=== PATIENT | female | born 1980 | race American Indian/Alaskan Native ===

== ENCOUNTER 2019-06-05 19:42 | Emergency (ER) | payer SELFPAY ==
--- NOTE | 2019-06-05 20:33 | Emergency Department Report ---
Blank Doc - Documentation Documentation: 39-year-old female that presents with rectal pain and constipation. This initial assessment/diagnostic orders/clinical plan/treatment(s) is/are subject to change based on patient's health status, clinical progression and re- assessment by fellow clinical providers in the ED. Further treatment and workup at subsequent clinical providers discretion. Patient/guardians urged not to elope from the ED as their condition may be serious if not clinically assessed and managed. Initial orders include: 1- Patient sent to [facility] for further evaluation and treatment 2- XR abd
--- NOTE | 2019-06-05 22:25 | XRay Report ---
ABDOMEN 1 VIEW(S) INDICATION / CLINICAL INFORMATION: MAIN: abd pain...constipation.... COMPARISON: None available. FINDINGS: TUBES / LINES: None. BOWEL GAS PATTERN: No significant abnormality. FREE AIR / EXTRALUMINAL GAS: None seen. ADDITIONAL FINDINGS: There is a very large amount of stool in colon with a distended rectum likely du e to fecal impaction. IMPRESSION: 1. Probable fecal impaction. Signer Name: Von Sheehan MD Signed: 06/05/2019 10:21 PM Workstation Name: [id number]
[2019-06-05] MEDS ORDERED: KETOROLAC 30 MG/1 ML INJ IV ONE (22:49)
--- NOTE | 2019-06-05 22:50 | Emergency Department Report ---
ED Abdominal Pain HPI - General Chief Complaint: Abdominal Pain Stated Complaint: CONSTIPATION X 3 DAYS Time Seen by Provider: 06/05/19 20:32 Source: patient Mode of arrival: Ambulatory Limitations: No Limitations - History of Present Illness Initial Comments: This is a 39-year-old -[place] female who presents to the emergency room with diffuse abdominal pain and rectal pain for 3 days. No significant past medical history. Patient states she feels constipated. States it feels as if bowel is stuck in her rectal region which is causing severe pain. Patient states she is currently using stool softeners and enema with no improvement in symptoms. She denies fever, chills, nausea, or vomiting. MD Complaint: abdominal pain Onset/Timin -: days(s) Location: diffuse Radiation: none Migration to: no migration Severity: severe Severity scale (0 -10): 10 Quality: cramping, stabbing Consistency: constant Improves With: nothing Worsens With: eating Associated Symptoms: denies other symptoms Treatments Prior to Arrival: other (Enema and stool softeners) - Related Data Previous Rx's Medication Instructions Recorded Last Taken Type Lactulose [Cephulac] 45 gm PO Q6HR #340 ml 06/06/19 Unknown Rx Polyethylene Glycol/Elect 4,000 ml PO ONCE #1 bottle 06/06/19 Unknown Rx [Golytely] Allergies Allergy/AdvReac Type Severity Reaction Status Date / Time No Known Allergies Allergy Unverified 06/05/19 23:25 ED Review of Systems ROS: Stated complaint: CONSTIPATION X 3 DAYS Other details as noted in HPI Constitutional: denies: chills, fever Respiratory: denies: cough, shortness of breath, wheezing Cardiovascular: denies: chest pain, palpitations Gastrointestinal: abdominal pain, constipation. denies: nausea, diarrhea Genitourinary: denies: urgency, dysuria, discharge Musculoskeletal: denies: back pain, joint swelling, arthralgia Skin: denies: rash, lesions Neurological: denies: headache, weakness, paresthesias Psychiatric: denies: anxiety, depression ED Past Medical Hx - Social History Smoking Status: Never Smoker Substance Use Type: Alcohol - Medications Home Medications: Home Medications Medication Instructions Recorded Confirmed Last Taken Type Lactulose [Cephulac] 45 gm PO Q6HR #340 ml 06/06/19 Unknown Rx Polyethylene Glycol/Elect 4,000 ml PO ONCE #1 bottle 06/06/19 Unknown Rx [Golytely] ED Physical Exam - General Limitations: No Limitations General appearance: alert, in no apparent distress, obese (Morbidly obese) - Respiratory Respiratory exam: Present: normal lung sounds bilaterally. Absent: respiratory distress - Cardiovascular Cardiovascular Exam: Present: regular rate, normal rhythm. Absent: systolic murmur, diastolic murmur, rubs, gallop - GI/Abdominal GI/Abdominal exam: Present: soft, tenderness (Left lower quadrant), normal bowel sounds, other (Obese abdomen). Absent: distended, guarding, rebound, rigid - Rectal Rectal exam: Present: fecal impaction - Extremities Exam Extremities exam: Present: normal inspection - Back Exam Back exam: Absent: CVA tenderness (R), CVA tenderness (L) - Neurological Exam Neurological exam: Present: alert, oriented X3 - Psychiatric Psychiatric exam: Present: normal affect, normal mood - Skin Skin exam: Present: warm, dry, intact, normal color. Absent: rash ED Course Vital Signs 06/05/19 06/06/19 06/06/19 19:45 00:24 02:19 Temperature 98.7 F 98.3 F Pulse Rate 101 H 69 Respiratory 22 18 15 Rate Blood Pressure 156/106 Blood Pressure 112/61 [Right] O2 Sat by Pulse 93 98 Oximetry ED Medical Decision Making - Radiology Data Radiology results: report reviewed ABDOMEN 1 VIEW(S) INDICATION / CLINICAL INFORMATION: MAIN: abd pain...constipation.... COMPARISON: None available. FINDINGS: TUBES / LINES: None. BOWEL GAS PATTERN: No significant abnormality. FREE AIR / EXTRALUMINAL GAS: None seen. ADDITIONAL FINDINGS: There is a very large amount of stool in colon with a distended rectum likely due to fecal impaction. IMPRESSION: 1. Probable fecal impaction. - Medical Decision Making This is a 39-year-old female who presents to the emergency room with abdominal pain and constipation for 3 days. No distress noted. Vitals stable. Work-up: X-ray of the chest and abdomen. Findings of probable fecal impaction. Patient was digitally stimulated, given soapsuds enema, and lactulose. Instructed to increase fiber, continue stool softener, and increase water intake for constipation. Start GoLYTELY and lactulose. Follow up with primary care doctor in 24 hours. Patient discharged home with strict return instructions. Critical care attestation.: If time is entered above; I have spent that time in minutes in the direct care of this critically ill patient, excluding procedure time. ED Disposition Clinical Impression: Fecal impaction in rectum, Constipation by outlet obstruction Abdominal pain Qualifiers: Abdominal location: lower abdomen, unspecified Qualified Code(s): R10.30 - Lower abdominal pain, unspecified Disposition: TO HOME OR SELFCARE Is pt being admited?: No Condition: Stable Instructions: Constipation (ED), High Fiber Diet (ED), Abdominal Pain (ED) Additional Instructions: Increase fiber intake with foods and/or metamucil. Increase water intake and drink or eat prunes. Take colace daily to soften stool. Get a mineral enema from [id number] at the pharmacy. Follow up with primary care doctor in 24-72 hours or return to the emergency room with worsening symptoms.. Prescriptions: Lactulose [Cephulac] 45 gm PO Q6HR #340 ml Polyethylene Glycol/Elect [Golytely] 4,000 ml PO ONCE #1 bottle Referrals: [facility] [Outside] - 3-5 Days [facility] [Outside] - 3-5 Days [facility] [Provider Group] - 3-5 Days MIKHAIL HINKLE MD [Staff Physician] - 3-5 Days Forms: Work/School Release Form(ED) Time of Disposition: 02:46
[2019-06-05] MEDS ORDERED: ACETAMINOPHEN W/CODEINE 300-30 MG TAB PO ONE (23:47)
[2019-06-06] MEDS ORDERED: LACTULOSE 20 GM/30 ML ORAL LIQD PO ONE (00:42)
[2019-06-06 02:19] VITALS: BP 112/61
== END 2019-06-06 03:04 | disposition home or self-care (01) ==
LOC: ED 19:42
DX: R10.30 Lower abdominal pain, unspecified (principal); K59.02 Outlet dysfunction constipation; K56.41 Fecal impaction
CPT/HCPCS: 74022; J1885